=== PATIENT | male | born 1965 | race Caucasian/White ===

== ENCOUNTER 2024-10-05 21:19 | Inpatient (IN) | payer OTHER, SELFPAY ==
[2024-10-05 18:23] VITALS: BP 173/95; BMI 31.4
[2024-10-05 18:39] LABS: % Basophils 0.4 % (0-2); % Eosinophils 0.6 % (0-6); % Immature Granulocytes 0.5 % (0-0.5); % Lymphocytes 14.2 % (20.5-51.1); % Monocytes 13.1 % (1.7-9.3); % Neutrophils 71.2 % (42.2-75.2); Absolute Eosinophils 0.1 10^3/uL (0-0.7); Absolute Immature Granulocytes 0.1 10^3/uL (0-0.05); Absolute Lymphocytes 1.4 10^3/uL (1.2-3.4); Absolute Monocytes 1.3 10^3/uL (0.1-0.6); Absolute Neutrophils 6.8 10^3/uL (1.4-6.5); Hematocrit 39.6 % (39.0-52.0); Hemoglobin 14.4 g/dL (13.0-18.0); Mean Corp Hgb Conc. 36.4 g/dL (33.0-37.0); Mean Platelet Volume 8.3 fL (7.4-10.4); Nucleated Red Blood Cells % 0 % (-); Platelet Count 211 10^3/uL (130-400); Red Cell Dist. Width 12.2 % (11.5-14.5); White Blood Cell Count 9.6 10^3/uL (4.8-10.8)
[2024-10-05 18:59] LABS: ALT (SGPT) 93 U/L (0-50); AST (SGOT) 71 U/L (17-59); Albumin 5.1 g/dl (3.5-5.0); Alkaline Phosphatase 68 U/L (38-126); Blood Urea Nitrogen 17 mg/dl (9-20); Carbon Dioxide 21 mmol/L (22-30); Chloride 86 mmol/L (98-107); Estimated Creatinine Clearance 64 ml/min; Glucose 94 mg/dl (70-99); Potassium 4.4 mmol/L (3.5-5.1); Sodium 126 mmol/L (135-145); Total Bilirubin 1.7 mg/dl (0.2-1.3); Total Protein 7.9 g/dl (6.3-8.2); eGFR 52.97
[2024-10-05 19:00] VITALS: BP 171/92
[2024-10-05 19:06] LABS: Troponin I 0.064 ng/ml
--- NOTE | 2024-10-05 19:30 | ED.GENMED ---
History of Present Illness
<Yudi King NP - Last Filed: 10/06/24 22:00>
General
Chief Complaint: Fall
Source: patient
Exam Limitations: none
Time Seen by Provider: 10/05/24 18:52
Nursing documentation reviewed up to this point in time: agreed with
History of Present Illness
History of Present Illness:
Patient to ED s/p syncopal event at home. He states he got up from a chair this AM, felt dizzy, and then passed out. He reports feeling well after. Tonight he had a repeat episode. Got up from chair, felt dizzy, passed out. Family called 911.
He denies any cp/pressure, SOB, n/v/diaphoresis with either episode. No prior history of same.
Past History
<Yudi King NP - Last Filed: 10/06/24 22:00>
Past History
ED Past Medical History: HTN and Psychiatric
ED Past Surgical History: Other (Hernia repair)
Social History
Tobacco: Non-smoker
Alcohol: Occasional (2-3 beers QOD)
Drug: None
Living: with family
Review of Systems
<Yudi King NP - Last Filed: 10/06/24 22:00>
Review of Systems
Allergies reviewed?: Yes
All Other Systems: ROS reviewed and negative except as documented in HPI and ROS
Constitutional: Reports fatigue
EENT: Reports no symptoms
Respiratory: Reports no symptoms
Cardiac: Reports syncope (2 episodes today.)
ABD/GI: Reports no symptoms
: Reports no symptoms
Musculoskeletal: Reports no symptoms
Skin: Reports no symptoms
Neurological: Reports no symptoms
Psychiatric: Reports no symptoms
Phy Exam
<Yudi King NP - Last Filed: 10/06/24 22:00>
General Physical Exam
General Presentation: well appearing and no apparent distress
General age: appears stated age
General Skin: warm and dry
General Habitus: normal
General Mental: alert
Cardiovascular Exam
Cardiovascular Exam: regular rate/rhythm and no edema
Pulmonary Exam
Pulmonary Exam: lungs clear and no respiratory distress
Gastrointestinal Exam
Gastrointestinal Exam: normal bowel sounds, non tender, soft, no organomegaly and non distended
Musculoskeletal Exam
Musculoskeletal Exam: full ROM and neuro vasc intact
Skin Exam
Skin Exam: normal color, warm/dry and no rash
Psychiatric Exam
Psychiatric Exam: normal mood/affect
Course
<Yudi King WELL DRILLER - Last Filed: 10/06/24 22:00>
Orders/Labs/Results
Orders:
Orders
10/05/24 Breakfast
Sodium, 2 Gram
At Your Request: Full Participation
Fluid Restriction: 1000 mL/day (33 oz)
10/05/24 18:26
Electrocardiogram (*1) Urgent
Reason for Study: Vertigo / Dizzy
EKG- Treatment ONCE
10/05/24 18:27
Complete Blood Count/With Diff Urgent
Comprehensive Metabolic Panel Urgent
Serum Osmolality Urgent
Comment: ADD ON
Troponin I Urgent
10/05/24 19:42
CARDIOLOGY CONSULT Urgent
Consulting Provider: Adam Pompa
Was physician already notified: Yes
10/05/24 19:43
0.9% Sodium Chloride 1000 ml [Nss] 1,000 ml IV BOLUS
10/05/24 20:45
Add On- LAB Urgent
Tests Added?: serum osmo
10/05/24 20:46
Orthostatic Vital Signs As Directed
Orthostatic VS Frequency: Now
10/05/24 21:02
Admit/Transfer Patient As Directed
Co-Sign Provider:
Level of Care: Inpatient admission
Assign to:: Telemetry
Physician / Group: Htay
Diagnosis: Hyponatremia, Syncope
Reason for Telemetry: Syncope
Date to Stop Telemetry: 10/07/24
Time to Stop Telemetry: 11:00
Reason for Hospitalization: IVFs
Expected length of stay greater than two midnights?: Yes
ELOS- Estimated Length of Stay in days: 3
I certify the patient meets the requirements for IP care: Yes
PRN Pain Medication Management As Directed
May give lesser potent ordered pain med per pt: Yes
preference::
Protocol:: Medication orders for pain may be administered in a
manner that supports deferring to patient preference
when the pt is:
- Requesting an ordered lesser potent pain medication.
Least to most potent pain medications are defined
as: acetaminophen < NSAID < tramadol < opioids
(morphine, oxycodone, hydromorphone).
- Requesting a lesser dose of the same medication IF
ORDERED.
- Requesting a less intrusive route of administration
if both routes are prescribed by the provider (PO <
IV).
10/05/24 21:04
Amlodipine [Norvasc] 5 mg PO NOW STA
10/05/24 21:05
Code Status As Directed
Resuscitation Status: Full Code
10/05/24 22:37
Acetaminophen [Tylenol] 650 mg PO Q4HPRN PRN
10/05/24 22:37
Activity As Directed
Activity Level: Out of Bed- Chair
Obtain Records As Directed
Dates of Information to be Released: 1-2 Months Ago
Type of Information Requested: Lab Results
Obtain Records from: Dr. Bernardo Green
Orthostatic Vital Signs As Directed
Orthostatic VS Frequency: Daily
Vital Signs As Directed
Frequency: Per unit guidelines
Weight As Directed
Frequency: Daily
DX Deep Vein Thrombosis Video Routine
10/05/24 23:50
Urine Osmolality Random [Osmolality, Random Urine] Urgent
Date Specimen was Collected: 10/05/24
Time Specimen was Collected: 21:19
Urine Sodium Urgent
Date Specimen was Collected: 10/05/24
Time Specimen was Collected: 21:19
10/06/24 00:00
Heparin 5,000 units SC Q8
10/06/24 00:18
Troponin I Q6H
10/06/24 06:11
Complete Blood Count/No Diff IN AM
Comprehensive Metabolic Panel IN AM
GGT [GGTP] IN AM
TSH Reflex To Free T4 IN AM
Troponin I Q6H
10/06/24 08:00
Amlodipine [Norvasc] 5 mg PO DAILY
Escitalopram Oxalate [Lexapro] 5 mg PO DAILY
10/07/24 11:00
DC Protocol for Telemetry ONCE
Abnormal Lab Results
10/05/24
18:27
RBC 4.50 L 10^6/uL
(4.70-6.10)
MCH 32.0 H pg
(27.0-31.0)
Abs Immat Gran (auto) 0.1 H 10^3/uL
(0-0.05)
Absolute Neuts (auto) 6.8 H 10^3/uL
(1.4-6.5)
Absolute Monos (auto) 1.3 H 10^3/uL
(0.1-0.6)
Lymphocytes % 14.2 L %
(20.5-51.1)
Monocytes % 13.1 H %
(1.7-9.3)
Sodium 126 L mmol/L
(135-145)
Chloride 86 L mmol/L
(98-107)
Carbon Dioxide 21 L mmol/L
(22-30)
Creatinine 1.5 H mg/dL
(0.7-1.3)
Total Bilirubin 1.7 H mg/dl
(0.2-1.3)
AST 71 H U/L
(17-59)
ALT 93 H U/L
(0-50)
Troponin I 0.064 H* ng/ml
Albumin 5.1 H g/dl
(3.5-5.0)
10/05/24 18:27
10/05/24 18:27
Vital Signs
Initial and Last Documented VS:
Initial Vital Signs
Temp Pulse Resp BP Pulse Ox
98.2 F 95 16 173/95 97
10/05/24 18:23 10/05/24 18:23 10/05/24 18:23 10/05/24 18:23 10/05/24 18:23
Last Documented Vital Signs
Temp Pulse Resp BP Pulse Ox
97.9 F 85 16 123/68 100
10/06/24 19:05 10/06/24 19:05 10/06/24 19:05 10/06/24 19:05 10/06/24 19:05
<Jack Carson, DO - Last Filed: 10/05/24 19:41>
Orders/Labs/Results
Orders:
Orders
10/05/24 Breakfast
Sodium, 2 Gram
At Your Request: Full Participation
Fluid Restriction: 1000 mL/day (33 oz)
10/05/24 18:26
Electrocardiogram (*1) Urgent
Reason for Study: Vertigo / Dizzy
EKG- Treatment ONCE
10/05/24 18:27
Complete Blood Count/With Diff Urgent
Comprehensive Metabolic Panel Urgent
Serum Osmolality Urgent
Comment: ADD ON
Troponin I Urgent
10/05/24 19:42
CARDIOLOGY CONSULT Urgent
Consulting Provider: Adam Pompa
Was physician already notified: Yes
10/05/24 19:43
0.9% Sodium Chloride 1000 ml [Nss] 1,000 ml IV BOLUS
10/05/24 20:45
Add On- LAB Urgent
Tests Added?: serum osmo
10/05/24 20:46
Orthostatic Vital Signs As Directed
Orthostatic VS Frequency: Now
10/05/24 21:02
Admit/Transfer Patient As Directed
Co-Sign Provider:
Level of Care: Inpatient admission
Assign to:: Telemetry
Physician / Group: Htay
Diagnosis: Hyponatremia, Syncope
Reason for Telemetry: Syncope
Date to Stop Telemetry: 10/07/24
Time to Stop Telemetry: 11:00
Reason for Hospitalization: IVFs
Expected length of stay greater than two midnights?: Yes
ELOS- Estimated Length of Stay in days: 3
I certify the patient meets the requirements for IP care: Yes
PRN Pain Medication Management As Directed
May give lesser potent ordered pain med per pt: Yes
preference::
Protocol:: Medication orders for pain may be administered in a
manner that supports deferring to patient preference
when the pt is:
- Requesting an ordered lesser potent pain medication.
Least to most potent pain medications are defined
as: acetaminophen < NSAID < tramadol < opioids
(morphine, oxycodone, hydromorphone).
- Requesting a lesser dose of the same medication IF
ORDERED.
- Requesting a less intrusive route of administration
if both routes are prescribed by the provider (PO <
IV).
10/05/24 21:04
Amlodipine [Norvasc] 5 mg PO NOW STA
10/05/24 21:05
Code Status As Directed
Resuscitation Status: Full Code
10/05/24 22:37
Acetaminophen [Tylenol] 650 mg PO Q4HPRN PRN
10/05/24 22:37
Activity As Directed
Activity Level: Out of Bed- Chair
Obtain Records As Directed
Dates of Information to be Released: 1-2 Months Ago
Type of Information Requested: Lab Results
Obtain Records from: Dr. Bernardo Green
Orthostatic Vital Signs As Directed
Orthostatic VS Frequency: Daily
Vital Signs As Directed
Frequency: Per unit guidelines
Weight As Directed
Frequency: Daily
DX Deep Vein Thrombosis Video Routine
10/05/24 23:50
Urine Osmolality Random [Osmolality, Random Urine] Urgent
Date Specimen was Collected: 10/05/24
Time Specimen was Collected: 21:19
Urine Sodium Urgent
Date Specimen was Collected: 10/05/24
Time Specimen was Collected: 21:19
10/06/24 00:00
Heparin 5,000 units SC Q8
10/06/24 00:18
Troponin I Q6H
10/06/24 06:11
Complete Blood Count/No Diff IN AM
Comprehensive Metabolic Panel IN AM
GGT [GGTP] IN AM
TSH Reflex To Free T4 IN AM
Troponin I Q6H
10/06/24 08:00
Amlodipine [Norvasc] 5 mg PO DAILY
Escitalopram Oxalate [Lexapro] 5 mg PO DAILY
10/07/24 11:00
DC Protocol for Telemetry ONCE
Abnormal Lab Results
10/05/24
18:27
RBC 4.50 L 10^6/uL
(4.70-6.10)
MCH 32.0 H pg
(27.0-31.0)
Abs Immat Gran (auto) 0.1 H 10^3/uL
(0-0.05)
Absolute Neuts (auto) 6.8 H 10^3/uL
(1.4-6.5)
Absolute Monos (auto) 1.3 H 10^3/uL
(0.1-0.6)
Lymphocytes % 14.2 L %
(20.5-51.1)
Monocytes % 13.1 H %
(1.7-9.3)
Sodium 126 L mmol/L
(135-145)
Chloride 86 L mmol/L
(98-107)
Carbon Dioxide 21 L mmol/L
(22-30)
Creatinine 1.5 H mg/dL
(0.7-1.3)
Total Bilirubin 1.7 H mg/dl
(0.2-1.3)
AST 71 H U/L
(17-59)
ALT 93 H U/L
(0-50)
Troponin I 0.064 H* ng/ml
Albumin 5.1 H g/dl
(3.5-5.0)
10/05/24 18:27
10/05/24 18:27
Vital Signs
Initial and Last Documented VS:
Initial Vital Signs
Temp Pulse Resp BP Pulse Ox
98.2 F 95 16 173/95 97
10/05/24 18:23 10/05/24 18:23 10/05/24 18:23 10/05/24 18:23 10/05/24 18:23
Last Documented Vital Signs
Temp Pulse Resp BP Pulse Ox
97.9 F 85 16 123/68 100
10/06/24 19:05 10/06/24 19:05 10/06/24 19:05 10/06/24 19:05 10/06/24 19:05
<Yudi King NP - Last Filed: 10/06/24 22:00>
*Critical Care Note
Total Time (30-74mins, 75-104mins- exclusive of procedures): Not Applicable
<Yudi King NP - Last Filed: 10/06/24 22:00>
Update Note
Update Note:
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 Reported standing and then feeling dizzy and passing out. Denies any cp/pressure, SOB, n/v/ diaphoresis. currently asymptomatic. Labs reviewed. Initial Troponin
0.064.Case discussed with Dr. Carson who also evaluated this patient. Will admit to hospitalist service. Na 126, creat 1.5. WIll rehydrate. Dr. Pompa notified of admission and will consult.
ED Attending Note
<Yudi King NP - Last Filed: 10/06/24 22:00>
-
Portions of this chart may have been created with voice recognition software.� Occasional wrong word or��sound alike� substitutions may have occurred due to the inherent limitations of voice recognition software.
<Jack Carson DO - Last Filed: 10/05/24 19:41>
ED Attending Note
Patient seen and examined by attending physician: Yes
I performed the substantive portion of visit, reviewed & personally made and approve the management plan that is documented in note by myself or SULEMAN.: Yes
ED Attending Note:
I evaluated the patient at bedside. Patient currently has no symptoms. He did have 2 episodes of passing out shortly after he stood up each time. Sodium is low and creatinine is high. He was given IV fluids. Of note patient's troponin is
slightly elevated and his EKG shows some questionable ST abnormality. Regardless, he has never had any chest pain and remains chest pain-free currently.
Discharge Plan
Departure
Patient Disposition: Admit
Date of Disposition: 10/05/24
Time of Disposition: 19:41
Presentation/result/management discussed w/ accepting MD/DO: Hospitalist
Patient with high blood pressure during this ER visit?: Yes
Condition: Fair
Discharge Problem:
Syncope
Interventions
Interventions:
*Risk Screen - Suicide Last Done: 10/05/24 18:23
*General Assessment Last Done: 10/05/24 18:23
*Neglect/Abuse Screening Last Done: 10/05/24 18:23
*ED- Fall Risk Assessment Last Done: 10/05/24 18:23
*ED COVID-19 Vaccine History Last Done: 10/05/24 18:23
*Nursing Disposition Last Done: 10/06/24 08:00
ED-Musculoskeletal Assessment Last Done: 10/05/24 19:12
ED- Neurological Assessment Last Done: 10/05/24 19:12
ED-Skin Assessment Last Done: 10/05/24 19:12
Discharge Date and Time
Discharge Date/Time: 10/06/24 08:00
[2024-10-05 20:00] VITALS: BP 163/90
[2024-10-05] MEDS: NSS 1000 IV (20:11)
[2024-10-05 21:00] VITALS: BP 180/90
--- NOTE | 2024-10-05 21:08 | HPS.HSE ---
Family Physician
-
Family Physician: Bernardo Green
Chief Complaint
-
Syncope
History of Present Illness
Patient is a 59 y/o male past medical history of hypertension and depression who presents following two syncopal episodes today. Patient reports prior to both episodes he stood up from a chair, got dizzy and passed out. Patient denies any prior
episodes of syncope. He denies any chest pains or palpitations. He reports poor appetite with poor oral intake. He describes only drinking about 3-4 glasses of water a day. He reports his PCP started him on valsartan about a month ago and he has
not really well since that time.
Medical History
Past Medical History
Past Medical History: Reports Other
Additional Past Medical History:
Essential Hypertension
Depression
Past Surgical History: Reports Other
Additional Past Surgical History:
Hernia Repair
Social History
Tobacco: Non-smoker
Alcohol: Occasional (3-4 beers every other day)
Family History
Family History: Not pertinent
Allergies / Home Medications
Allergies reflects when Allergies were last updated in [facility].
Home Medications with original date entered in [facility]
Allergy/Medication List:
Allergies
Allergy/AdvReac Type Severity Reaction Status Date / Time
No Known Allergies Allergy Unverified 10/05/24 19:52
Home Medications
escitalopram oxalate 5 mg tablet 5 mg PO DAILY 10/05/24
sildenafil 100 mg tablet 100 mg PO DAILYPRN PRN intercourse 10/05/24
valsartan 160 mg tablet 320 mg PO DAILY 10/05/24
Review of Systems
-
A 12 point ROS was completed and negative except as noted: Yes
Constitutional: Denies Fever or Chills
Respiratory: Denies Cough or Trouble Breathing
Cardiac: Denies Chest Pain or Palpitations
Physical Exam
Vital Signs
Vital Signs
Temp Pulse Resp BP Pulse Ox
98.2 F 87 16 163/90 97
10/05/24 18:23 10/05/24 20:45 10/05/24 20:45 10/05/24 20:00 10/05/24 20:45
Physical Exam
General: Comfortable and Conversant
HEENT: Anicteric and Other (Tongue appears slightly dry)
Respiratory: Clear and Non Labored Respirations
Cardiac: S1/S2 and Regular Rhythm; No Murmur
GI: Soft and Non Tender
Rectal: Deferred by Provider
Musculoskeletal: No Clubbing, No Cyanosis and No Edema
Skin: Warm and Dry
Neuro: Awake, Alert, Oriented and Nonfocal/grossly intact
Psych: Calm
Laboratory Results
-
10/05/24 18:27
10/05/24 18:27
Laboratory Results
Total Bilirubin 1.7 mg/dl (0.2-1.3) H 10/05/24 18:27
AST 71 U/L (17-59) H 10/05/24 18:27
ALT 93 U/L (0-50) H 10/05/24 18:27
Alkaline Phosphatase 68 U/L (38-126) 10/05/24 18:27
Troponin I 0.064 ng/ml H* 10/05/24 18:27
Data Reviewed
-
Lab Data: Labs Reviewed by me
Old Records: Requested (Attempt to obtain blood work from PCP)
Impression/Plan
-
Acute Kidney Injury, likely multi-factorial from ARB and poor oral intake
-Continue IVFs overnight
-Hold valsartan
-Recheck labs in AM
Hyponatremia, likely hypovolemic
-Continue IVFs overnight
-Check urine sodium, urine osmo and serum osmo
Syncope suspect related to volume deletion
-Check orthostatic VS
-Check echocardiogram
Elevated Troponin, likely non-ischemic
-Continue to trend troponin
Elevated LFTs possibly related to hypoperfusion
-Check Abd US
-Continue to trend
Depression
-Continue escitalopram
DVT proph: SC Heparin
Code Status: Full Code
[2024-10-05 21:15] LABS: Osmolality Serum 287 mOsm/kg (275-300)
--- NOTE | 2024-10-05 21:15 | W.PN.UPDATE ---
Update Note
Progress Note Update
This note serves as an addendum to the H&P by national recruiter SULEMAN Tracy DIETZ
HPI
59M non smoker, occasional beer drinker , HX HTN [facility] EMS and seen at ER for 2 syncopal episode at home:
- recall felt dizzy, when he got up from a chair this AM and then passed out.
- felt well after passing out
- Tonight he had a repeat episode after getting up from chair, felt dizzy, passed out.
- Family called 911
- No prior HX Syncope
Denied CP
Unremarkable EKG in NSR and no acute ischemia
TPNI 0.064
Cr 1.5
ROS:
He denies any cp/pressure, SOB, n/v/diaphoresis with either episode
VS
10/05/24
18:23
Temp 98.2 F
Pulse 95
Resp Rate 16
Blood pressure 173/95
SaO2 97
Oxygen Mode of Delivery Room air
PE
Gen: Not toxic
HEENT: anicteric
Neck: supple , no bruit
Lungs: CTA
Cor: RRR S1 S2 . No murmur
Abdomen: soft benign exam
MAINTENANCE OF WAY SUPERVISOR: AAO3 , NFND
MS: no edema
Psych: normal mood and affect
Lab
10/05/24
18:27
WBC 9.6
Hgb 14.4
Plt Count 211
Sodium 126 L
Chloride 86 L
Carbon Dioxide 21 L
Creatinine 1.5 H
eGFR 52.97
Serum Osmolality Pending
Total Bilirubin 1.7 H
AST 71 H
ALT 93 H
Troponin I 0.064 H*
EKG
NORMAL SINUS RHYTHM
ABNORMAL QRS-T ANGLE, CONSIDER PRIMARY T WAVE ABNORMALITY
ABNORMAL ECG
NO PREVIOUS ECGS AVAILABLE
ASSESSMENT & PLAN
2 episodes of witnessed syncope preceded by lightheadedness
Hypertensive upon arrival
Not tachy or laura arrhythmic on monitor
Hyponatremia & hypochloremia suspect dehydration
- s/p 1 L NS @ ER and no more after the first litre
- Ortho VSS now and in AM
- TLM monitor
- ECHO in AM
- Trend Na in AM
- check TSH in AM
- Fall precautions
- DCA card consult
POS TPNI - NIMI vs
Unremarkable EKG
- Denied CP
- Trend TPNI
- ECHO Evaluation
- await Card input
JANEY suspect dehydration +/_ Valsartan
Poor appetite , Poor PO intake
- Hold Valsartan
- Trend Cr in and Na in AM
Essential HTN
- start Amlodipine 5 mg daily
- Hold Valsartan
- Observe BP
Abn LFTS
Reports occasional Beer 2-3 cans every other day
- Trend LFTs s/p IVF
- GGT
DVT Px: SQH
Full code
IP TLM
[2024-10-05] MEDS: NORVASC 5 MG PO (21:31)
[2024-10-05 22:00] VITALS: BP 167/89
[2024-10-05 23:00] VITALS: BP 153/87
[2024-10-06] VITALS (11 sets, daily range): BP systolic 115–171; BP diastolic 68–103; PULSE 96–113
[2024-10-06 00:12] LABS: Osmolality Urine 126 mOsm/kg (300-900)
[2024-10-06 01:03] LABS: Troponin I 0.045 ng/ml
[2024-10-06] MEDS: HEPARIN 5000 UNITS SC ×4 (01:24→23:05)
[2024-10-06 01:27] LABS: Urine Sodium 17 mmol/L (30-90)
[2024-10-06] MEDS: TYLENOL 650 MG PO ×3 (01:28→12:14)
[2024-10-06 06:20] LABS: Hematocrit 38.1 % (39.0-52.0); Hemoglobin 13.7 g/dL (13.0-18.0); Mean Corpuscular Hgb 32.2 pg (27.0-31.0); Mean Corpuscular Volume 89.4 fL (80.0-94.0); Mean Platelet Volume 8.5 fL (7.4-10.4); Platelet Count 189 10^3/uL (130-400); Red Blood Cell Count 4.26 10^6/uL (4.70-6.10); White Blood Cell Count 8.2 10^3/uL (4.8-10.8)
[2024-10-06 06:45] LABS: Troponin I 0.028 ng/ml
[2024-10-06 06:46] LABS: ALT (SGPT) 82 U/L (0-50); AST (SGOT) 60 U/L (17-59); Alkaline Phosphatase 67 U/L (38-126); Blood Urea Nitrogen 16 mg/dl (9-20); Calcium 9.8 mg/dl (8.4-10.2); Carbon Dioxide 20 mmol/L (22-30); Chloride 94 mmol/L (98-107); Estimated Creatinine Clearance 87 ml/min; Glucose 84 mg/dl (70-99); Potassium 5.7 mmol/L (3.5-5.1); Sodium 127 mmol/L (135-145); Total Bilirubin 2.8 mg/dl (0.2-1.3); Total Protein 7.3 g/dl (6.3-8.2); eGFR > 60.00
[2024-10-06 07:12] LABS: TSH Reflex To Free T4 3.23 uIU/ml (0.47-4.68)
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
--- NOTE | 2024-10-06 08:51 | CM ---
Reviewed the chart notes and spoke with the patient at the bedside. The patient resides with his spouse, son, and daughter in a two story home with one step to enter. The patient reports no DME/VN/SNF in the past. The [facility] CM continues to be available to patient/family and is monitoring medical plan for needs at discharge.
Plan: Discharge to home when medically stable. No additional needs identified at this time.
--- NOTE | 2024-10-06 09:27 | PTCARENOTE ---
patient currently off unit for ultrasound.
[2024-10-06] MEDS: LEXAPRO 5 MG PO (10:40)
[2024-10-06] MEDS: NORVASC 5 MG PO (10:40)
[2024-10-06] MEDS: CALAN EXTENDED RELEASE 180 MG PO (12:14)
[2024-10-06 12:17] LABS: Cortisol, Random 18.3 ug/dl
--- NOTE | 2024-10-06 15:17 | PTCARENOTE ---
Complains of unrelieved knee pain s/p fall. No open wound noted. Dr. Alfonzo austin.
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
--- NOTE | 2024-10-06 16:14 | W.CON.NEPH ---
Consultation
-
Date/Time Consultation Requested: October 06, 2024 at 4 PM
Date/Time Consultation Performed: October 06, 2024 at 4:15 PM
Requesting Provider: Dr. Mejía
Performing Provider: Dr. Last
Reason for Consultation: Hyponatremia
Medical History
-
Chief Complaint: Syncope and hyponatremia
History of Present Illness:
59 y/o male past medical history of hypertension and depression who presents following two syncopal episodes yesterday. Patient reports prior to both episodes he stood up from a chair, got dizzy and passed out. Patient denies any prior episodes
of syncope. He denies any chest pains or palpitations. He reports poor appetite with poor oral intake with weight loss. He describes only drinking about 3-4 glasses of water a day and 4-5 beers per day. CP started him on valsartan about a month
ago.
He is found to have a sodium of 126 therefore renal consult
He has been taking Motrin 800 mg daily for 3 to 4 weeks
Past Medical History
hypertension and depression alcohol use
Social History
Tobacco: Non-Smoker
Alcohol: Daily
Family History
Family History: Not Pertinent
Allergies / Home Medications
Allergy/AdvReac Type Severity Reaction Status Date / Time
No Known Allergies Allergy Unverified 10/05/24 19:52
�Medication �Instructions �Recorded �Confirmed �Type
escitalopram oxalate 5 mg tablet 5 mg PO DAILY 10/05/24 10/05/24 History
sildenafil 100 mg tablet 100 mg PO DAILYPRN PRN intercourse 10/05/24 10/05/24 History
valsartan 160 mg tablet 320 mg PO DAILY 10/05/24 10/05/24 History
Review of Systems
-
Weakness no chest pain or shortness of breath
All other systems: Negative unless noted
Physical Exam
Vital Signs
Vital Signs
Temp Pulse Resp BP Pulse Ox
98.3 F 86 20 120/78 96
10/06/24 15:27 10/06/24 15:27 10/06/24 15:27 10/06/24 15:27 10/06/24 15:27
Lab Results
WBC 8.2 10^3/uL (4.8-10.8) 10/06/24 06:11
RBC 4.26 10^6/uL (4.70-6.10) L 10/06/24 06:11
Hgb 13.7 g/dL (13.0-18.0) 10/06/24 06:11
Hct 38.1 % (39.0-52.0) L 10/06/24 06:11
Plt Count 189 10^3/uL (130-400) 10/06/24 06:11
eGFR > 60.00 10/06/24 06:11
Albumin 5.0 g/dl (3.5-5.0) 10/06/24 06:11
Physical Exam
General no acute distress
HEENT no cephalic atraumatic extraocular muscle intact no scleral icterus no JVD neck supple
lungs clear to auscultation bilateral
heart regular S1-S2 positive
abdomen soft nontender positive bowel sounds
extremities no edema pulses present bilateral
Neurologically nonfocal alert and oriented x 3
Skin no lesions no abrasions no petechiae
Psych normal affect no bizarre behavior
Data Reviewed
-
Ultrasound: Image Personally Visualized and interpreted
Medical Tests (Nuc Med, Echo etc): Image Personally Visualized and interpreted
Labs: Labs Reviewed by me, Discussed with Patient and Discussed with Family
Assessment/Plan
-
59 y/o male past medical history of hypertension and depression who presents following two syncopal episodes yesterday. Patient reports prior to both episodes he stood up from a chair, got dizzy and passed out. Patient denies any prior episodes of
syncope. He denies any chest pains or palpitations. He reports poor appetite with poor oral intake with weight loss. He describes only drinking about 3-4 glasses of water a day and 4-5 beers per day. CP started him on valsartan about a month ago.
He is found to have a sodium of 126 therefore renal consult
He has been taking Motrin 800 mg daily for 3 to 4 weeks
Impression.
Hyponatremia.
Hypertension.
Syncope.
Alcohol use.
Plan.
urine sodium 17 urine osmolality 126.
He has been drinking at 4 to 5 glasses of water since he has been here
Alcohol use 4-5 beers daily with about 4 glasses of water daily.
In conjunction with decreased p.o. intake decreased solute intake.
Hold IV fluid
Fluid restrict 32 ounces
Recheck labs in the morning
Cortisol and TSH within normal limits
[2024-10-06] MEDS: ULTRAM 50 MG PO (16:50)
[2024-10-06 17:11] LABS: Blood Urea Nitrogen 21 mg/dl (9-20); Calcium 9.8 mg/dl (8.4-10.2); Carbon Dioxide 22 mmol/L (22-30); Chloride 93 mmol/L (98-107); Estimated Creatinine Clearance 80 ml/min; Glucose 107 mg/dl (70-99); Potassium 4.9 mmol/L (3.5-5.1); Sodium 128 mmol/L (135-145); eGFR > 60.00
[2024-10-06] MEDS: THIAMINE INJECTION 200 MG IV (19:39)
[2024-10-06 20:03] LABS: GGTP 84 U/L (15-73)
[2024-10-06] MEDS: TORADOL 15 MG IV (20:28)
--- NOTE | 2024-10-06 20:30 | PTCARENOTE ---
Pt complaining of left knee pain unrelieved by previous pain medications. [facility] notified, Order obtained, Toradol IV given as ordered for left knee pain 03/03. Left knee red, ecchymotic, and edematous. Ice pack applied. No other complaints
offered at this time. MSAS 0. HR in the 70's in NSR on the monitor. Vital signs stable. Will continue to monitor.
[2024-10-07] VITALS (8 sets, daily range): BP systolic 112–125; BP diastolic 66–80; PULSE 96–100; BMI 29.6
--- NOTE | 2024-10-07 | PTCARENOTE ---
Pt reports left knee pain much improved at this time, 08/31. New ice pack applied. No other issues to report at this time. Will continue to monitor.
[2024-10-07] MEDS: ULTRAM 50 MG PO ×2 (06:12→16:22)
[2024-10-07 07:56] LABS: Blood Urea Nitrogen 29 mg/dl (9-20); Calcium 9.8 mg/dl (8.4-10.2); Carbon Dioxide 22 mmol/L (22-30); Chloride 95 mmol/L (98-107); Estimated Creatinine Clearance 60 ml/min; Glucose 108 mg/dl (70-99); Potassium 5.2 mmol/L (3.5-5.1); Sodium 129 mmol/L (135-145); eGFR 57.54
[2024-10-07] MEDS: CALAN EXTENDED RELEASE 180 MG PO (08:34)
[2024-10-07] MEDS: LEXAPRO 5 MG PO (08:36)
[2024-10-07] MEDS: HEPARIN 5000 UNITS SC ×2 (08:37→16:21)
[2024-10-07] MEDS: THIAMINE INJECTION 200 MG IV ×2 (08:37→20:16)
[2024-10-07] MEDS: FOLVITE 1 MG PO (08:37)
[2024-10-07] MEDS: MORPHINE SULFATE 2 MG IV (09:08)
[2024-10-07] MEDS: TYLENOL 650 MG PO (09:08)
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
--- NOTE | 2024-10-07 11:27 | W.PN.UPDATE ---
Update Note
Progress Note Update
Patient seen and examined by orthopedic surgery. Full H&P pending.
59-year-old male presenting to ED on Saturday after experiencing 2 syncopal episodes. He reports that he fell directly onto his left knee. He reports increased pain to the left knee with weightbearing activities beginning yesterday. Orthopedic
surgery was consulted for recommendations regarding his left knee pain
X-rays of the left knee were obtained and reviewed, and revealed no obvious acute fracture or dislocation. Mild tricompartmental osteoarthritis with a moderate suprapatellar joint effusion.
Case discussed with Dr. Gordon. Will proceed with aspiration of the left knee joint. If positive for hemarthrosis, will obtain MRI to rule out internal derangement/occult fracture. If negative for hemarthrosis, given arthrosis noted on plain
radiographs, we will proceed with corticosteroid injection.
--- NOTE | 2024-10-07 12:39 | W.PN.NEPH.PH ---
Today's Communication / Plan
-
Fluid restrict okay for discharge from renal standpoint BMP in 1 week postdischarge with primary care physician no need to follow-up with nephrology
Assessment/Plan
-
59 y/o male past medical history of hypertension and depression who presents following two syncopal episodes yesterday. Patient reports prior to both episodes he stood up from a chair, got dizzy and passed out. Patient denies any prior episodes of
syncope. He denies any chest pains or palpitations. He reports poor appetite with poor oral intake with weight loss. He describes only drinking about 3-4 glasses of water a day and 4-5 beers per day. CP started him on valsartan about a month ago.
He is found to have a sodium of 126 therefore renal consult
He has been taking Motrin 800 mg daily for 3 to 4 weeks
Impression.
Hyponatremia.
Hypertension.
Syncope.
Alcohol use.
Plan.
urine sodium 17 urine osmolality 126.
He has been drinking at 4 to 5 glasses of water since he has been here
Alcohol use 4-5 beers daily with about 4 glasses of water daily.
In conjunction with decreased p.o. intake decreased solute intake.
Hold IV fluid
Fluid restrict 32 ounces
Sodium improved to 129
Cortisol and TSH within normal limits
Okay to discharge from a renal standpoint with blood work with his primary in a week.
Educated him with fluid restriction
-
-
Date of Service: October 07, 2024
CC / HPI / ROS
-
No chest pain or shortness of breath complains of left knee swelling
No overnight events
Labs
-
Labs:
WBC 8.2 10^3/uL (4.8-10.8) 10/06/24 06:11
RBC 4.26 10^6/uL (4.70-6.10) L 10/06/24 06:11
Hgb 13.7 g/dL (13.0-18.0) 10/06/24 06:11
Hct 38.1 % (39.0-52.0) L 10/06/24 06:11
Plt Count 189 10^3/uL (130-400) 10/06/24 06:11
Sodium 129 mmol/L (135-145) L 10/07/24 06:52
Potassium 5.2 mmol/L (3.5-5.1) H 10/07/24 06:52
Chloride 95 mmol/L (98-107) L 10/07/24 06:52
Carbon Dioxide 22 mmol/L (22-30) 10/07/24 06:52
BUN 29 mg/dl (9-20) H 10/07/24 06:52
Creatinine 1.4 mg/dL (0.7-1.3) H 10/07/24 06:52
eGFR 57.54 10/07/24 06:52
Glucose 108 mg/dl (70-99) H 10/07/24 06:52
Calcium 9.8 mg/dl (8.4-10.2) 10/07/24 06:52
Albumin 5.0 g/dl (3.5-5.0) 10/06/24 06:11
Physical Exam
-
Vital Signs:
Vital Signs
Temp Pulse Resp BP Pulse Ox
98.6 F 86 18 112/66 96
10/07/24 11:00 10/07/24 11:00 10/07/24 11:00 10/07/24 11:00 10/07/24 11:00
Respiratory:: Bilateral: CTA
Lung Excursion:: Normal
Abdomen:: Soft
Bowel Sounds:: Normal
Esposito Catheter: No
Other Findings::
Left knee swelling
--- NOTE | 2024-10-07 13:14 | CM ---
Patient seen at bedside. Patient states that he is for a drain to his knee and he plans to go home with no further needs. CM will continue to follow for discharge planning needs.
Plan;home with no needs
--- NOTE | 2024-10-07 14:22 | W.PN.UPDATE ---
Update Note
Progress Note Update
Patient underwent left knee aspiration yielding approximately 30 cc of cloudy yellow synovial fluid. This was sent to the lab for cell count, Gram stain, culture and sensitivity, crystal analysis, and Lyme's. No corticosteroid injection was
administered due to clarity of joint fluid.
Full H&P pending. Discussed with primary team Dr. Mejía.
Orthopedic surgery will continue to follow along.
--- NOTE | 2024-10-07 14:30 | CON.ORTHO ---
Documented by User: J Carlos Marino PA-C 10/07/24 19:53
Consultation
-
Date/Time Consultation Requested: 10/07/2024 @ 8:59 AM
Date/Time Consultation Performed: 10/07/2024 @ 11:15 AM
Requesting Provider: Dr. Alfonzo MD
Performing Provider: J Carlos Marino PA-C for Dr. Mauricio Gordon MD
Reason for Consultation: Left Knee Pain & Effusion
Consultation - Orthopedics
History
Orthopedic Surgery Note
CC: Left Knee Pain and Swelling
HPI: The patient is a 59-year-old male with a past medical history significant for Hypertension and Depression who presented to [facility] ED on 10/05/2024 after sustaining two syncopal episodes at home. He reports that he
unfortunately fell and hit his left knee after the second syncopal event. He denies any immediate onset of pain at the time. He reports onset of left knee pain beginning on 10/06/2024. X-rays were obtained, and were negative for acute
fracture or dislocation. X-rays revealed mild tricompartmental osteoarthritis with a moderate suprapatellar joint effusion. The patient denies any history of Gout or Lyme's disease. He denies any constitutional symptoms. He reports that his knee
pain has not worsened since onset yesterday. He denies any paresthesias. He reports always having some swelling about his left knee, however was never was really associated with pain. He endorses increased left knee pain with weightbearing
activities, localized to the medial and lateral aspects. He denies any hip or groin pain. Orthopedic surgery was consulted for further management of his left knee knee pain with consideration for arthrocentesis.
PMH/PSH: Hypertension and Depression.
Medications: Reviewed.
Family History: Family history was reviewed. Noncontributory.
Social history:
Tobacco: Non-Smoker
Alcohol: Occasional (3-4 beers every other day)
Drug: None
Personal:
Living: With Family
Exam
General appearance: Pleasant. No acute distress.
Head: Normocephalic/atraumatic
Nose: No lesions or discharge.
Skin: No obvious rashes or open wounds
Lungs: No audible wheezing, no cough or sputum production
Musculoskeletal:
LLE:
Physical examination of the left lower extremity, with attention to the left knee, does not reveal any obvious deformity, erythema, significant warmth, or ecchymosis. Moderate intra-articular effusion. Extensor mechanism is intact. ROM just shy
of terminal extension to approximately 100 degrees of flexion, limited by pain and swelling. Positive medial joint line tenderness. Positive lateral joint line tenderness. No tenderness to palpation overlying the quadriceps tendon, patella or
patellar tendon. Equivocal patellofemoral grind. I do not appreciate any obvious instability the cruciates or collaterals at 0 and 30 degrees. Betty's testing is equivocal. No pain with hip ROM 20 degrees internal rotation and 20 degrees
external rotation. Calf is soft and nontender to palpation. NVI distally.
Imaging:
CR Knee - LEFT 1 or 2 Views was obtained at [facility] on 10/06/2024 and was made available for my review today. Findings: Bones - There is no acute fracture or dislocation. Joints - There is a moderate suprapatellar joint effusion. There
is moderate joint space narrowing of the medial compartment. There is mild joint space narrowing of the lateral compartment. There is mild osteophyte formation of the lateral compartment. There is mild joint space narrowing of the patellofemoral
joint with moderate sclerosis. Periosteal reaction - There is no bony destruction, erosive changes, or periosteal reaction. Soft tissue - There is no abnormal soft tissue calcification. Impression: Moderate suprapatellar joint effusion. Mild
tricompartmental osteoarthritis.
Assessment: 59-year-old male with a past medical history significant for HTN and Depression with left knee pain and effusion. X-rays revealed mild tricompartmental osteoarthritis with a moderate suprapatellar effusion; negative for occult fracture
or dislocation.
Plan: After obtaining verbal consent, and confirming laterality, the patient's LEFT knee was meticulously sterilized with alcohol, and with a 60 cc syringe and 18-gauge needle, approximately 30 cc of cloudy yellow synovial fluid was aspirated. Due
to clarity of joint fluid, this was sent to the lab for cell count, Gram stain, culture and sensitivity, crystal analysis, and Lyme's. Orthopedic surgery will continue to follow aspirate results.
UPDATE:
Left Knee Arthrocentesis -
Fluid WBC: 58,690
PMN: 91.2%
Crystal Analysis: (+) Monosodium Urate Crystals seen.
Gram Stain: WBC's seen. No organisms seen.
Fluid Culture: Pending.
Patient presentation, radiographs, and arthrocentesis results discussed with Dr. Gorodn. Signs and symptoms most consistent with Gout. Discussed treatment recommendations with Dr. Gordon; recommended proceeding with a corticosteroid injection.
This was administered intra-articularly into the LEFT knee with 40 mg of Kenalog and 4 cc of 0.25% Marcaine without complication; the patient tolerated the procedure well. Orthopedic surgery will continue to follow along, however patient would also
likely benefit from gout treatment/management from primary team perspective. All questions were answered.
Allergies / Home Medications
Allergy/AdvReac Type Severity Reaction Status Date / Time
No Known Allergies Allergy Unverified 10/05/24 19:52
�Medication �Instructions �Recorded
escitalopram oxalate 5 mg tablet 5 mg PO DAILY 10/05/24
sildenafil 100 mg tablet 100 mg PO DAILYPRN PRN intercourse 10/05/24
valsartan 160 mg tablet 320 mg PO DAILY 10/05/24
Vital Signs / Lab Results
Temp Pulse Resp BP Pulse Ox
98.6 F 86 18 112/66 95
10/07/24 11:00 10/07/24 11:00 10/07/24 11:00 10/07/24 11:00 10/07/24 13:11
10/06/24 06:11
10/07/24 06:52

Documented by User: Mauricio Gordon MD 10/08/24 06:58
Consultation - Orthopedics
History
Orthopedic Surgery Note
CC: Left Knee Pain and Swelling
Patient seen and evaluated by Mauricio Gordon MD.
HPI: The patient is a 59-year-old male with a past medical history significant for Hypertension and Depression who presented to [facility] ED on 10/05/2024 after sustaining two syncopal episodes at home. He reports that he
unfortunately fell and hit his left knee after the second syncopal event. He denies any immediate onset of pain at the time. He reports onset of left knee pain beginning on 10/06/2024. X-rays were obtained, and were negative for acute
fracture or dislocation. X-rays revealed mild tricompartmental osteoarthritis with a moderate suprapatellar joint effusion. The patient denies any history of Gout or Lyme's disease. He denies any constitutional symptoms. He reports that his knee
pain has not worsened since onset yesterday. He denies any paresthesias. He reports always having some swelling about his left knee, however was never was really associated with pain. He endorses increased left knee pain with weightbearing
activities, localized to the medial and lateral aspects. He denies any hip or groin pain. Orthopedic surgery was consulted for further management of his left knee knee pain with consideration for arthrocentesis.
PMH/PSH: Hypertension and Depression.
Medications: Reviewed.
Family History: Family history was reviewed. Noncontributory.
Social history:
Tobacco: Non-Smoker
Alcohol: Occasional (3-4 beers every other day)
Drug: None
Personal:
Living: With Family
Exam
General appearance: Pleasant. No acute distress.
Head: Normocephalic/atraumatic
Nose: No lesions or discharge.
Skin: No obvious rashes or open wounds
Lungs: No audible wheezing, no cough or sputum production
Musculoskeletal:
LLE:
Physical examination of the left lower extremity, with attention to the left knee, does not reveal any obvious deformity, erythema, significant warmth, or ecchymosis. Moderate intra-articular effusion. Extensor mechanism is intact. ROM just shy
of terminal extension to approximately 100 degrees of flexion, limited by pain and swelling. Positive medial joint line tenderness. Positive lateral joint line tenderness. No tenderness to palpation overlying the quadriceps tendon, patella or
patellar tendon. Equivocal patellofemoral grind. I do not appreciate any obvious instability the cruciates or collaterals at 0 and 30 degrees. Betty's testing is equivocal. No pain with hip ROM 20 degrees internal rotation and 20 degrees
external rotation. Calf is soft and nontender to palpation. NVI distally.
Imaging:
CR Knee - LEFT 1 or 2 Views was obtained at [facility] on 10/06/2024 and was made available for my review today. Findings: Bones - There is no acute fracture or dislocation. Joints - There is a moderate suprapatellar joint effusion. There
is moderate joint space narrowing of the medial compartment. There is mild joint space narrowing of the lateral compartment. There is mild osteophyte formation of the lateral compartment. There is mild joint space narrowing of the patellofemoral
joint with moderate sclerosis. Periosteal reaction - There is no bony destruction, erosive changes, or periosteal reaction. Soft tissue - There is no abnormal soft tissue calcification. Impression: Moderate suprapatellar joint effusion. Mild
tricompartmental osteoarthritis.
Assessment: 59-year-old male with a past medical history significant for HTN and Depression with left knee pain and effusion. X-rays revealed mild tricompartmental osteoarthritis with a moderate suprapatellar effusion; negative for occult fracture
or dislocation.
Plan: After obtaining verbal consent, and confirming laterality, the patient's LEFT knee was meticulously sterilized with alcohol, and with a 60 cc syringe and 18-gauge needle, approximately 30 cc of cloudy yellow synovial fluid was aspirated. Due
to clarity of joint fluid, this was sent to the lab for cell count, Gram stain, culture and sensitivity, crystal analysis, and Lyme's. Orthopedic surgery will continue to follow aspirate results.
UPDATE:
Left Knee Arthrocentesis -
Fluid WBC: 58,690
PMN: 91.2%
Crystal Analysis: (+) Monosodium Urate Crystals seen.
Gram Stain: WBC's seen. No organisms seen.
Fluid Culture: Pending.
Patient presentation, radiographs, and arthrocentesis results discussed with Dr. Gordon. Signs and symptoms most consistent with Gout. Discussed treatment recommendations with Dr. Gordon; recommended proceeding with a corticosteroid injection.
This was administered intra-articularly into the LEFT knee with 40 mg of Kenalog and 4 cc of 0.25% Marcaine without complication; the patient tolerated the procedure well. Orthopedic surgery will continue to follow along, however patient would also
likely benefit from gout treatment/management from primary team perspective. All questions were answered.
[2024-10-07] MEDS: SENSORCAINE-MPF 0.25% VIAL 4 ML INFIL (14:47)
[2024-10-07 14:58] LABS: Body Fluid Mononuclear 8.8 %; Body Fluid Polymorphonuclear 91.2 %; Body Fluid WBC 58690 /CUMM
--- NOTE | 2024-10-07 15:18 | W.PN.UPDATE ---
Update Note
Progress Note Update
Stable cardiovascular status.
Echo reviewed.
Will arrange outpatient follow-up visit for evaluation for outpatient ischemic eval and potential monitor.
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
[2024-10-07 15:33] LABS: Body Fluid Second Tech DW
[2024-10-08] MEDS: HEPARIN 5000 UNITS SC ×2 (00:04→09:06)
[2024-10-08] MEDS: ULTRAM 50 MG PO ×2 (00:26→09:16)
[2024-10-08 03:41] VITALS: BP 126/87
[2024-10-08 06:00] VITALS: BMI 29.5
[2024-10-08 06:41] LABS: Blood Urea Nitrogen 32 mg/dl (9-20); Calcium 10.2 mg/dl (8.4-10.2); Carbon Dioxide 23 mmol/L (22-30); Chloride 97 mmol/L (98-107); Estimated Creatinine Clearance 64 ml/min; Glucose 163 mg/dl (70-99); Potassium 5.5 mmol/L (3.5-5.1); Sodium 132 mmol/L (135-145); eGFR > 60.00
[2024-10-08 07:15] VITALS: BP 143/104; BP 145/88; BP 162/96; PULSE 104; PULSE 82; PULSE 99
--- NOTE | 2024-10-08 07:29 | W.PN.UPDATE ---
Update Note
Progress Note Update
Dr. Gordon had an opportunity to follow-up on Mr. Bauer this morning. After his left knee aspiration and cortisone injection yesterday he feels better. He does have history of gout in his feet so recommendations are to discuss gout management
(allopurinol) with his primary Dr. Green after discharge. Expect him to continue to improve over the next few days with the steroid injection. Orthopedics to sign off for now and he may follow-up as needed for his knee pain.
[2024-10-08] MEDS: CALAN EXTENDED RELEASE 180 MG PO (09:05)
[2024-10-08] MEDS: FOLVITE 1 MG PO (09:05)
[2024-10-08] MEDS: THIAMINE INJECTION 200 MG IV (09:06)
[2024-10-08] MEDS: LEXAPRO 5 MG PO (09:07)
--- NOTE | 2024-10-08 10:38 | W.PN.NEPH.PH ---
Today's Communication / Plan
-
Continue fluid restriction 48 ounces outpatient
Assessment/Plan
-
59 y/o male past medical history of hypertension and depression who presents following two syncopal episodes yesterday. Patient reports prior to both episodes he stood up from a chair, got dizzy and passed out. Patient denies any prior episodes of
syncope. He denies any chest pains or palpitations. He reports poor appetite with poor oral intake with weight loss. He describes only drinking about 3-4 glasses of water a day and 4-5 beers per day. CP started him on valsartan about a month ago.
He is found to have a sodium of 126 therefore renal consult
He has been taking Motrin 800 mg daily for 3 to 4 weeks
Impression.
Hyponatremia.
Hypertension.
Syncope.
Alcohol use.
Plan.
urine sodium 17 urine osmolality 126.
He has been drinking at 4 to 5 glasses of water since he has been here
Alcohol use 4-5 beers daily with about 4 glasses of water daily.
In conjunction with decreased p.o. intake decreased solute intake.
Hold IV fluid
Fluid restrict 32 ounces
Sodium improved to 129�132
Cortisol and TSH within normal limits
Okay to discharge from a renal standpoint with blood work with his primary in a week.
Educated him with fluid restriction
-
-
Date of Service: October 08, 2024
CC / HPI / ROS
-
No chest pain or shortness of breath complains of left knee swelling status post drainage
No overnight events
Labs
-
Labs:
WBC 8.2 10^3/uL (4.8-10.8) 10/06/24 06:11
RBC 4.26 10^6/uL (4.70-6.10) L 10/06/24 06:11
Hgb 13.7 g/dL (13.0-18.0) 10/06/24 06:11
Hct 38.1 % (39.0-52.0) L 10/06/24 06:11
Plt Count 189 10^3/uL (130-400) 10/06/24 06:11
Sodium 132 mmol/L (135-145) L 10/08/24 06:03
Potassium 5.5 mmol/L (3.5-5.1) H 10/08/24 06:03
Chloride 97 mmol/L (98-107) L 10/08/24 06:03
Carbon Dioxide 23 mmol/L (22-30) 10/08/24 06:03
BUN 32 mg/dl (9-20) H 10/08/24 06:03
Creatinine 1.3 mg/dL (0.7-1.3) 10/08/24 06:03
eGFR > 60.00 10/08/24 06:03
Glucose 163 mg/dl (70-99) H 10/08/24 06:03
Calcium 10.2 mg/dl (8.4-10.2) 10/08/24 06:03
Albumin 5.0 g/dl (3.5-5.0) 10/06/24 06:11
Physical Exam
-
Vital Signs:
Vital Signs
Temp Pulse Resp BP Pulse Ox
97.7 F 82 16 145/88 98
10/08/24 07:15 10/08/24 09:05 10/08/24 07:15 10/08/24 09:05 10/08/24 07:15
Respiratory:: Bilateral: CTA
Lung Excursion:: Normal
Abdomen:: Soft
Bowel Sounds:: Normal
Esposito Catheter: No
Other Findings::
Left knee swelling
[2024-10-08 11:12] VITALS: BP 138/80
[2024-10-08 11:53] LABS: Uric Acid 9.6 mg/dl (3.5-8.5)
[2024-10-08 11:55] VITALS: BP 138/80
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
[2024-10-08 15:00] VITALS: BP 148/84
[2024-10-08 15:20] VITALS: BP 123/69
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
--- NOTE | 2024-10-08 15:51 | CM ---
Reviewed chart, patient at plof/baseline. Wants to return home.
Plan: Case management will continue to follow and assist with discharge planning. Home.
[2024-10-12 08:19] LABS: Lyme Disease DNA by PCR Not Detected; Lyme Source Synovial fluid
== END 2024-10-08 16:13 | disposition home or self-care (01) | DRG 683 ==
LOC: 4 EAST ACU 21:19
PROVIDERS: Emergency Medicine; Physician Assistant Medical; Student in an Organized Health Care Education/Training Program; ADMITTING PHYSICIAN Internal Medicine; ATTENDING PHYSICIAN Internal Medicine; CONSULT PHYSICIAN Internal Medicine Cardiovascular Disease; CONSULT PHYSICIAN Internal Medicine Nephrology; CONSULT PHYSICIAN Specialist; EMERGENCY PHYSICIAN Emergency Medicine; FAMILY PHYSICIAN Family Medicine
DX: N17.9 Acute kidney failure, unspecified (principal); E87.1 Hypo-osmolality and hyponatremia; I5A Non-ischemic myocardial injury (non-traumatic); E86.0 Dehydration; F10.10 Alcohol abuse, uncomplicated; M10.062 Idiopathic gout, left knee; I10 Essential (primary) hypertension; E87.6 Hypokalemia; R55 Syncope and collapse
CPT/HCPCS: 73560; 76700; 80048; 80053; 82533; 82977; 83930; 83935; 84300; 84443; 84484; 84550; 85025; 85027; 87015; 87070; 87205; 87476; 89051; 89060; 93005; 93306; 96360; 97162; 99285

== ENCOUNTER → 2024-11-05 08:22 | Outpatient (REF) | payer OTHER, SELFPAY | LOC: RCS 08:22 | PROVIDERS: ATTENDING PHYSICIAN Physician Assistant Medical; FAMILY PHYSICIAN Family Medicine | DX: Z87.898 Personal history of other specified conditions (principal); R79.89 Other specified abnormal findings of blood chemistry; I10 Essential (primary) hypertension | CPT/HCPCS: 93017; 93350 ==

== ENCOUNTER 2025-06-05 20:46 | Inpatient (IN) | payer OTHER, SELFPAY ==
[2025-06-05] VITALS (15 sets, daily range): BP systolic 107–163; BP diastolic 68–96; PULSE 87–103; BMI 30.5; BMI 29.6
[2025-06-05 15:50] LABS: Hematocrit 39.1 % (39.0-52.0); Hemoglobin 13.9 g/dL (13.0-18.0); Mean Corp Hgb Conc. 35.5 g/dL (33.0-37.0); Mean Corpuscular Volume 95.6 fL (80.0-94.0); Nucleated Red Blood Cells % 0 % (-); Platelet Count 169 10^3/uL (130-400); Red Cell Dist. Width 12.3 % (11.5-14.5)
[2025-06-05 16:04] LABS: ALT (SGPT) 279 U/L (0-50); AST (SGOT) 528 U/L (17-59); Albumin 4.4 g/dl (3.5-5.0); Alkaline Phosphatase 229 U/L (38-126); Blood Urea Nitrogen 10 mg/dl (9-20); Calcium 9.2 mg/dl (8.4-10.2); Carbon Dioxide 25 mmol/L (22-30); Chloride 93 mmol/L (98-107); Estimated Creatinine Clearance 94 ml/min; Glucose 84 mg/dl (70-99); Potassium 4.3 mmol/L (3.5-5.1); Sodium 127 mmol/L (135-145); Total Protein 7.4 g/dl (6.3-8.2); eGFR > 60.00
--- NOTE | 2025-06-05 16:45 | ED.GENMED ---
History of Present Illness
General
Chief Complaint: Fainting/Passed Out
Source: patient
Exam Limitations: none
Time Seen by Provider: 06/05/25 16:34
History of Present Illness
History of Present Illness:
See MDM
Past History
Past History
ED Past Medical History: HTN and Psychiatric
ED Past Surgical History: Other (Hernia repair)
Social History
Tobacco: Non-smoker
Alcohol: Occasional (2-3 beers QOD)
Drug: None
Living: with family
Phy Exam
Physical Exam
Physical Exam:
See MDM
Course
Orders/Labs/Results
Orders:
Orders
06/05/25 15:27
EKG [Electrocardiogram (*1)] Urgent
Reason for Study: Vertigo / Dizzy
EKG- Treatment ONCE
06/05/25 15:35
Complete Blood Count/With Diff Urgent
Comprehensive Metabolic Panel Urgent
06/05/25 16:44
CT Head W/o Iv Contrast Urgent
Comment:
Reason For Exam: frequent falls and seizure-like activity
US Abdomen Complete/Upper Urgent
Comment:
Reason For Exam: RUQ pain
06/05/25 16:56
Hepatitis A Antibody, Total Urgent
Hepatitis A IgM Antibody Urgent
Hepatitis B Core Ab, IgM Urgent
Hepatitis B Core Ab, Total Urgent
Hepatitis B Surface Antibody Urgent
Hepatitis B Surface Antigen Urgent
Hepatitis C Antibody Urgent
Abnormal Lab Results
06/05/25
15:35
RBC 4.09 L 10^6/uL
(4.70-6.10)
MCV 95.6 H fL
(80.0-94.0)
MCH 34.0 H pg
(27.0-31.0)
Absolute Monos (auto) 0.7 H 10^3/uL
(0.1-0.6)
Lymphocytes % 18.5 L %
(20.5-51.1)
Monocytes % 11.1 H %
(1.7-9.3)
Sodium 127 L mmol/L
(135-145)
Chloride 93 L mmol/L
(98-107)
Total Bilirubin 2.0 H mg/dl
(0.2-1.3)
AST 528 H* U/L
(17-59)
ALT 279 H U/L
(0-50)
Alkaline Phosphatase 229 H U/L
(38-126)
06/05/25 15:35
06/05/25 15:35
Vital Signs
Initial and Last Documented VS:
Initial Vital Signs
Pulse Ox
99
06/05/25 15:30
Last Documented Vital Signs
Temp Pulse Resp BP Pulse Ox
98.3 F 83 20 152/93 98
06/05/25 15:40 06/05/25 19:00 06/05/25 19:00 06/05/25 19:00 06/05/25 19:00
MDM/Problems Addressed
Differential Diagnosis Includes:
Note:
CHIEF COMPLAINT(S)
Shaking episodes and altered mental status.
HISTORY OF PRESENT ILLNESS
The patient is a 59-year-old male with a history of hypertension who presented with episodes of shaking and altered mental status. Patient has had frequent falls recently. The patient exhibits occasional confusion and instability. at bedside
states that patient has these shaking episodes and then passes out. He has been under the care of his primary physician, Dr. 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 Previous tests include an MRI and ultrasound conducted in [place] and [place], yet results are
not available. Laboratory findings indicated elevated liver enzymes, prompting concerns of possible liver dysfunction. The patient reports no daily use of acetaminophen but admits to consuming alcohol socially on weekends. The patient denies regular
pain or gastrointestinal issues, although he reports reduced morning appetite and no pain associated with eating.
ADDITIONAL HISTORY OBTAINED FROM SOURCES OTHER THAN THE PATIENT
Detailed history provided by the patients family members, emphasizing concerns regarding the patients falls, confusion, and health deterioration.
CHRONIC MEDICAL CONDITIONS SIGNIFICANTLY AFFECTING CARE
Chronic conditions affecting care: Hypertension.
SOCIAL DETERMINANTS AFFECTING HEALTH
The patient has reported alcohol consumption, including periods of binge drinking when feeling depressed.
PHYSICAL EXAM
General: Alert, no acute distress.
Skin: Warm, dry.
Head: Normocephalic, atraumatic
Neck: Appears supple, trachea midline.
Eyes, Ears, Nose, Mouth, and Throat: Moist mucous membranes
Cardiovascular: No signs of cyanosis
Respiratory: Respirations are non-labored.
Abdomen: Non-distended. Soft and nontender
Musculoskeletal: No deformities
Neurological: No focal neurological deficit observed.
Psychiatric: Cooperative, appropriate mood and affect.
PLAN
The plan includes conducting a hepatic panel to rule out viral hepatitis and monitoring for any further neurological symptoms. The patient is to stay overnight for evaluation by a neurologist and to obtain a CT scan of the head if necessary to rule
out intracranial pathology.
DIFFERENTIAL DIAGNOSIS
The Differential Diagnosis includes, in no particular order and is not limited to:
- Seizure disorder
- Alcohol-related liver disease
- Hepatitis A or other forms of viral hepatitis
- Delirium due to metabolic causes
- Neurodegenerative disorder
- Transient ischemic attack
- Hepatic encephalopathy
- Intracranial hemorrhage
- Orthostatic hypotension
- Medication side effects
SUMMARY OF ENCOUNTER
The patient was evaluated for recent shaking episodes, altered mental status, a recent fall leading to a rib fracture, and abnormal liver function tests. Previous MRI and ultrasound results were unavailable. A hepatic panel was added for a
comprehensive liver evaluation to rule out viral hepatitis.
MEDICATION RECONCILIATION
Addition of hepatitis panel for further blood work as part of the evaluation.
MEDICAL DECISION MAKING
-Complexity of Data Reviewed: Chronic conditions affecting care - Hypertension.
The Differential Diagnosis includes, in no particular order and is not limited to seizures, alcohol-related liver disease, hepatitis A or other forms of viral hepatitis, delirium due to metabolic causes, neurodegenerative disorder, transient
ischemic attack, hepatic encephalopathy, intracranial hemorrhage, orthostatic hypotension, medication side effects.
-Data:
Category 2
Clinical information was obtained from family members providing additional history on falls and mental status changes.
Category 3
Discussion of management with the primary care provider and neurologist was considered for further evaluation and ruling out of any neurological causes.
-Risk: Prescription medication management, potential risks associated with lumbar puncture testing in the emergency department setting, consideration of possible admission for further monitoring and evaluation. The consideration of viral hepatitis
and ensuring proper hydration and reduced alcohol consumption were also addressed in planning the patients management pathway.
DIAGNOSIS
- Seizure Disorder, Possible (ICD-10: G40.909)
- Elevated Liver Enzymes (ICD-10: R74.8)
- Alcohol Use Disorder (ICD-10: F10.10)
EKG
My independent EKG interpretation is:
- Rhythm: Sinus rhythm
- [place]: Normal axis
- ST Segment: No ST elevation
- Intervals: Within normal limits
SUMMARY OF ENCOUNTER
The patient presented with several weeks of seizure-like activity and episodes of syncope. Additionally, he has a history of elevated liver function tests for which he has been receiving outpatient evaluation. A CT scan of the head was performed in
the emergency department to rule out any intracranial mass, which returned negative. An ultrasound of the gallbladder was non-specific. Due to the elevated liver enzymes and seizure-like activity, the decision was made to admit the patient for
further workup and evaluation.
DISPOSITION
Admit for further workup.
ASSESSMENT
The patient presents with seizure-like activity, syncope, and elevated liver function tests.
PLAN
The plan involves admitting the patient for further evaluation, including a hepatic panel to explore liver function abnormalities and monitoring for potential neurological causes.
INDEPENDENT REVIEW OF LABS AND INTERPRETATION OF TESTS
My independent review of CT of the head is negative for any intracranial mass.
MEDICAL DECISION MAKING
-Complexity of Data Reviewed: Chronic conditions affecting care include hypertension. The Differential Diagnosis includes seizure disorder, alcohol-related liver disease, hepatitis A or other forms of viral hepatitis, delirium due to metabolic
causes, neurodegenerative disorder, transient ischemic attack, hepatic encephalopathy, intracranial hemorrhage, orthostatic hypotension, medication side effects.
-Data:
Category 1
My independent interpretation of the CT scan of the head was conducted to rule out any intracranial mass, which was negative.
Category 2
Clinical information was obtained from family members emphasizing the patients falls and mental status changes.
Category 3
Management of the patient�s care was discussed with his primary care provider for coordination in admitting the patient for further evaluation.
DIAGNOSIS
- Possible Seizure Disorder (ICD-10: G40.909)
- Elevated Liver Enzymes (ICD-10: R74.8)
*Pulse Oximetry
SaO2: 99
Oxygen Mode of Delivery: Room air
Patient hypoxic: no
*Critical Care Note
Total Time (30-74mins, 75-104mins- exclusive of procedures): Not Applicable
ED Attending Note
-
Portions of this chart may have been created with voice recognition software.� Occasional wrong word or��sound alike� substitutions may have occurred due to the inherent limitations of voice recognition software.
Discharge Plan
Departure
Patient Disposition: Admit
Date of Disposition: 06/05/25
Time of Disposition: 19:20
Presentation/result/management discussed w/ accepting MD/DO: Hospitalist
Discharge Problem:
Transaminitis
Prescriptions:
No Action
sildenafil 100 mg Tablet
100 mg PO DAILYPRN PRN (Reason: intercourse)
escitalopram oxalate 5 mg Tablet
5 mg PO DAILY
verapamil 180 mg Tablet Extended Release
180 mg PO DAILY Qty: 30 0RF
folic acid 1 mg Tablet
1 mg PO DAILY Qty: 30 0RF
Rx Instructions:
For 1 month
acetaminophen 325 mg Tablet
650 mg PO Q4HPRN PRN (Reason: mild pain/ fever>100.5F) Qty: 1 0RF
tramadol 50 mg Tablet
50 mg PO Q6HPRN PRN (Reason: moderate pain) Qty: 12 0RF
thiamine mononitrate (vit B1) 100 mg Tablet
100 mg PO BID Qty: 60 0RF
Rx Instructions:
For a month
Referrals:
Ana Combs CRNP [Family Provider, Family Practice]
Interventions
Interventions:
*Risk Screen - Suicide Last Done: 06/05/25 15:47
*General Assessment Last Done: 06/05/25 15:45
*Neglect/Abuse Screening Last Done: 06/05/25 15:47
*ED COVID-19 Vaccine History Last Done: 06/05/25 15:45
*ED Influenza Vaccine History Last Done: 06/05/25 15:45
[facility] Fall Risk Assessment Tool Last Done: 06/05/25 16:38
ED- Cardiac Assessment Last Done: 06/05/25 16:14
ED- Neurological Assessment Last Done: 06/05/25 16:00
Discharge Date and Time
Print Language: UZBEK
[2025-06-05 18:13] LABS: Hepatitis B Surface Antigen Negative (Negative)
[2025-06-05 18:30] LABS: Hepatitis A Antibody, Total Negative (Negative); Hepatitis C Antibody Negative (Negative)
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
[2025-06-05 21:06] LABS: Urine Character Clear (Clear)
[2025-06-05 21:16] LABS: Ammonia 17 umol/L (9-30)
--- NOTE | 2025-06-05 23:00 | PTCARENOTE ---
Pt arrived to floor via stretcher from the ED. Pt able to ambulate from stretcher to bed without difficulty. Pt AAOx3. Pt tremulous, states this is abnormal for him. Pt also reports some abd discomfort, especially in am, with some loose stools.
Taking tums at home. Pt also reports some intermittent dizziness/ lightheadedness if standing up too fast. Orthostatic vitals obtained and documented. HR in the 80's in NSR on the monitor. POX 97% on RA. Lungs clear. + bowel, round abd. Palpable
peripheral pulses noted. Left AC int capped. MSAS 4 at this time. Pt instructed on fall risk protocol and need for bed alarm. Pt reports understanding. Call chong in reach. Will continue to monitor.
[2025-06-05] MEDS: ZESTRIL 10 MG PO (23:11)
[2025-06-05] MEDS: TOPROL XL 25 MG PO (23:11)
[2025-06-05] MEDS: THIAMINE INJECTION 200 MG IV (23:13)
[2025-06-05] MEDS: TYLENOL 650 MG PO (23:27)
[2025-06-05 23:38] LABS: Troponin I < 0.012 ng/ml
[2025-06-05 23:43] LABS: INR 1.01; PT 13.4 Sec (11.4-14.6)
[2025-06-05 23:44] LABS: APTT 24.4 Sec (23.4-35.0)
[2025-06-06] VITALS (14 sets, daily range): BP systolic 98–149; BP diastolic 65–92; PULSE 72–94; O2SAT 99; BMI 29.6
[2025-06-06 06:12] LABS: ALT (SGPT) 192 U/L (0-50); AST (SGOT) 394 U/L (17-59); Albumin 3.5 g/dl (3.5-5.0); Alkaline Phosphatase 180 U/L (38-126); Blood Urea Nitrogen 9 mg/dl (9-20); Calcium 8.9 mg/dl (8.4-10.2); Carbon Dioxide 24 mmol/L (22-30); Chloride 100 mmol/L (98-107); Estimated Creatinine Clearance 105 ml/min; Glucose 100 mg/dl (70-99); Magnesium 1.6 mg/dl (1.6-2.3); Potassium 4.1 mmol/L (3.5-5.1); Sodium 132 mmol/L (135-145); Total Protein 6.0 g/dl (6.3-8.2); eGFR > 60.00
[2025-06-06 06:23] LABS: Troponin I 0.013 ng/ml
--- NOTE | 2025-06-06 06:23 | PTCARENOTE ---
Pt slept well overnight. No issues to report. MSAS 3-4 t/o the night. No need for any PRN medications. Pt cooperative with care. Denies any complaints. vital signs stable. Call chong in reach. Will continue to monitor.
[2025-06-06 06:40] LABS: Hematocrit 34.3 % (39.0-52.0); Hemoglobin 12.1 g/dL (13.0-18.0); Mean Corp Hgb Conc. 35.3 g/dL (33.0-37.0); Mean Corpuscular Volume 95.8 fL (80.0-94.0); Platelet Count 129 10^3/uL (130-400); Red Cell Dist. Width 12.5 % (11.5-14.5)
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
[2025-06-06] MEDS: PROTONIX 40 MG PO (07:47)
[2025-06-06] MEDS: FOLVITE 1 MG PO (07:47)
[2025-06-06] MEDS: TOPROL XL 50 MG PO (07:47)
[2025-06-06] MEDS: ZYLOPRIM 300 MG PO (07:47)
[2025-06-06] MEDS: THIAMINE INJECTION 200 MG IV ×3 (07:48→23:20)
[2025-06-06 12:35] LABS: Troponin I < 0.012 ng/ml
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
--- NOTE | 2025-06-06 16:18 | CM ---
CM met with pt bedside
Pt resides with his spouse and 28 y/o dtr in a 2SH, 0STE, full flight to 2nd floor
Pt is independent with his ADLs, no DMEs
Denies financial insecurities
PCP- Ana Combs
Rx- [facility]
CM consult for ETOH use
[facility] offered and pt adamantly declined
Discharge Dispositio- anticipate home, declined [facility]
[2025-06-06] MEDS: TYLENOL 650 MG PO (20:25)
[2025-06-06] MEDS: ZESTRIL 10 MG PO (21:43)
[2025-06-06] MEDS: MELATONIN 5 MG PO (21:43)
[2025-06-06] MEDS: TOPROL XL 25 MG PO (21:44)
[2025-06-07] VITALS (7 sets, daily range): BP systolic 116–147; BP diastolic 62–89; PULSE 68; O2SAT 98
[2025-06-07] MEDS: FOLVITE 1 MG PO (07:39)
[2025-06-07] MEDS: TOPROL XL 50 MG PO (07:39)
[2025-06-07] MEDS: PROTONIX 40 MG PO (07:39)
[2025-06-07] MEDS: ZYLOPRIM 300 MG PO (07:40)
[2025-06-07] MEDS: THIAMINE INJECTION 200 MG IV ×3 (07:41→23:57)
[2025-06-07] MEDS: TYLENOL 650 MG PO (07:50)
[2025-06-07 08:51] LABS: Hematocrit 32.4 % (39.0-52.0); Hemoglobin 11.3 g/dL (13.0-18.0); Mean Corp Hgb Conc. 34.9 g/dL (33.0-37.0); Mean Corpuscular Volume 98.5 fL (80.0-94.0); Platelet Count 110 10^3/uL (130-400); Red Cell Dist. Width 12.4 % (11.5-14.5)
[2025-06-07 09:31] LABS: ALT (SGPT) 180 U/L (0-50); AST (SGOT) 252 U/L (17-59); Albumin 3.4 g/dl (3.5-5.0); Alkaline Phosphatase 149 U/L (38-126); Blood Urea Nitrogen 5 mg/dl (9-20); Calcium 8.8 mg/dl (8.4-10.2); Carbon Dioxide 29 mmol/L (22-30); Chloride 101 mmol/L (98-107); Estimated Creatinine Clearance 105 ml/min; Glucose 117 mg/dl (70-99); Magnesium 1.7 mg/dl (1.6-2.3); Potassium 4.2 mmol/L (3.5-5.1); Sodium 134 mmol/L (135-145); Total Protein 6.0 g/dl (6.3-8.2); eGFR > 60.00
--- NOTE | 2025-06-07 11:29 | EEG.RPT ---
Electroencephalogram Report
Recording
Date of EE06/07/25
Type of EEG: Routine
Length of EEG recordin minutes
Done with Video Recording: Yes
Patient Status: Inpatient
Recording Conditions: Awake and Drowsy
Hyperventilation Performed: No
Photic Stimulation Performed: Yes
Report
LESS THAN 1 HOUR EEG INTERPRETATION:
Unremarkable EEG for age
CLINICAL CORRELATION:
A normal EEG does not rule out a diagnosis of epilepsy. If clinical suspicion for seizure persists, a prolonged recording may be warranted.
Clinical correlation is advised.
METHODS:
A 21 channel digitized electroencephalogram (EEG) was performed using the 10/20 international system of electrode placement and one-lead of ECG recorded. The [employer] quantitative EEG system was utilized.
ELECTROENCEPHALOGRAPHER IMPRESSION(S):
Quality of study
Good
Background
There was an unremarkable anterior-posterior voltage gradient of alpha frequency.
With eye opening the background activity changed to a low voltage mixture of frequencies.
There were no significant asymmetries of background activity noted.
Sleep
Drowsiness present
Photic Stimulation
No activation
ECG
Normal sinus rhythm
[2025-06-07] MEDS: ZOFRAN 4 MG IV (12:37)
--- NOTE | 2025-06-07 13:44 | W.PN.UPDATE ---
Update Note
Progress Note Update
pt seen for assessment. in good spirits, hoping to get out soon. states low bp is major issue for him. not interested in detox/rehab/return to AA. Aware of risks of alcohol, willing to get treatment for PTSD but had been turned down for this by
workmen's comp program. Encouraged to seek this through his health insurance (through his ) [facility]. Once Na normal would restart zoloft 50 with plan to increase up to 100
--- NOTE | 2025-06-07 14:09 | PTOTSP ---
Pt presents to OT at independent level with basic ADLs, transfers and functional mobility in room and x household distances without AD. No further skilled OT indicated at this time.
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
[2025-06-07] MEDS: MELATONIN 5 MG PO (21:29)
[2025-06-07] MEDS: ZESTRIL 10 MG PO (21:29)
[2025-06-07] MEDS: TOPROL XL 25 MG PO (21:29)
[2025-06-08 03:00] VITALS: BP 123/80
[2025-06-08 07:05] VITALS: BP 130/73
[2025-06-08] MEDS: THIAMINE INJECTION 200 MG IV (07:44)
[2025-06-08] MEDS: TOPROL XL 50 MG PO (07:44)
[2025-06-08] MEDS: FOLVITE 1 MG PO (07:44)
[2025-06-08] MEDS: PROTONIX 40 MG PO (07:44)
[2025-06-08] MEDS: ZYLOPRIM 300 MG PO (07:48)
[2025-06-08] MEDS: ZOFRAN 4 MG IV (07:52)
[2025-06-08 08:24] LABS: Blood Urea Nitrogen 5 mg/dl (9-20); Calcium 8.8 mg/dl (8.4-10.2); Carbon Dioxide 29 mmol/L (22-30); Chloride 101 mmol/L (98-107); Estimated Creatinine Clearance 93 ml/min; Glucose 111 mg/dl (70-99); Magnesium 1.4 mg/dl (1.6-2.3); Potassium 3.9 mmol/L (3.5-5.1); Sodium 134 mmol/L (135-145); eGFR > 60.00
[2025-06-08 08:29] LABS: Hematocrit 32.4 % (39.0-52.0); Hemoglobin 10.9 g/dL (13.0-18.0); Mean Corp Hgb Conc. 33.6 g/dL (33.0-37.0); Mean Corpuscular Volume 99.1 fL (80.0-94.0); Platelet Count 123 10^3/uL (130-400); Red Cell Dist. Width 12.5 % (11.5-14.5)
[2025-06-08] MEDS: MAGNESIUM OXIDE 400 MG PO (09:02)
[2025-06-08 11:00] VITALS: BP 130/74
--- NOTE | 2025-06-08 13:10 | W.DCSUMMARY ---
Discharge Summary
Discharge Data
Date of Admission: 06/05/25
Date of Discharge: 06/08/25
Total time spent discharging patient (in min): 45
-
Pending Results: No
Hospital Course
Attending physician on day of discharge:
Hilda Fu MD
Discharge diagnosis:
Recurrent syncope
Hyponatremia
Alcohol use disorder
Transaminitis
Seizure-like episode
Secondary diagnoses:
Macrocytic anemia
HTN
Consultations:
Psychiatry
Procedures:
EEG
Hospital course:
59M with HTN and depression p/w recurrent episodes of syncope x several months, associated with falls, shaky/tremulous episodes, as well as witnessed seizure-like activity. He was found to have hyponatremia, transaminitis, and macrocytic anemia.
He reported continued use of alcohol that was reportedly decreased from previous. His constellation of symptoms and lab abnormalities were suggestive of alcohol use disorder. He did not exhibit any withdrawal symptoms. He had an abdominal
ultrasound which showed hepatic fatty infiltration, his transaminitis was suspected to be from alcohol use. He had EEG which did not show epilepsy, PNES was considered. His family brought in MRI brain results that showed mild to moderate cerebral
atrophy and changes associated with chronic small vessel ischemia and this was discussed with neurology who recommended outpatient follow-up, some of these changes are likely related to alcohol use as well. His sodium improved with fluid
restriction to 134, he was advised to follow-up with his PCP within a week for repeat testing. His sertraline was held due to the hyponatremia, psychiatry was consulted to help with medications for his PTSD, they recommended resuming Zoloft once
his hyponatremia completely resolves and increasing the dose as well to 100 mg. He was also recommended for therapy however he declined, he also declined [facility].
Physical exam on discharge:
Gen: NAD
HEENT: PERRLA, EOMI, MMM, neck supple
Cards: RRR, no M/G/R
Resp: Lungs CTAB, no W/R/R
GI: soft, NT/ND/NABS
MSK: No edema
Skin: warm and dry, no rash, ulcer or lesions
Heme: No LAD
Psych: Calm
Neuro: AAOx3
Discharge disposition:
Home
Discharge Plan
-
Patient Disposition: Home (Routine Discharge)
Discharge Diagnosis/Procedures: Recurrent syncope, PTSD, Ataxia/tremulousness, depression, alcohol use disorder
Diet: Regular
Activity: As tolerated
Instructions: Alcohol use disorder (DC), Alcohol and your health
Referrals:
Alexis Alegre MD [Active, Neurology] - in two weeks
Ana Combs CRNP [Family Provider, Family Practice]
Santana Singh MD [Active, Psychiatry] - in one to two weeks
Additional Discharge Medication Instructions: You were evaluated for your episodes of syncope (loss of conciousness) and were found to have low sodium (127), and elevated liver enzymes. Your sodium improved greatly (134), which is almost normal.
Your sertraline was held due to the low sodium but it can be resumed with a plan to increase from 50mg to 100mg once your sodium is completely normal (135 or above), so please follow up with your primary care doctor for repeat blood work within a
week. You should also follow up with psychiatry who saw you here as they may be best suited to adjusting your psych meds. Your liver tests also started to improve but are not completely back to normal, your PCP can do follow up labs for this. You
had work up for this with abdominal ultrasound which showed an enlarged fatty liver, which is suspected due to alcohol use. DO NOT DRINK ALCOHOL. Your syncope episodes were also most suspected due to that. The neurologist (Dr. Alegre) reviewed your
MRI brain and will follow up with you in the clinic to address the changes that were noted. Some of these changes are also related to alcohol use. You also had an EEG while here that did not show epilepsy. Stress from your PTSD may have led to the
seizure like activity you had (PNES).
Prescriptions:
New
melatonin 5 mg Tablet
5 mg PO HS Qty: 30 0RF
ondansetron 4 mg tablet,disintegrating
4 mg PO Q8H PRN (Reason: nausea) Qty: 14 0RF
Continued
folic acid 1 mg Tablet
1 mg PO DAILY Qty: 30 0RF
metoprolol succinate 50 mg tablet extended release 24 hr
50 mg PO DAILY
metoprolol succinate 50 mg tablet extended release 24 hr
25 mg PO HS
therapeutic multivitamin Tablet
1 tab PO DAILY
ascorbic acid (vitamin C) 500 mg Tablet
500 mg PO DAILY
lisinopril 10 mg tablet
10 mg PO HS
vitamin B complex Tablet
1 tab PO DAILY
allopurinol 300 mg tablet
300 mg PO DAILY
Rexulti 1 mg tablet
1 mg PO DAILY
Held
sertraline 50 mg tablet
50 mg PO HS
Hold Instructions: Resume on 06/15/25. hold until your sodium is normalized, follow up with PCP for repeat sodium level (BMP)
Discharge Orders:
Discharge Patient (As Directed); Ordered 06/08/25
Ordered By: Hilda Fu
Discharge Date and Time
Discharge Date/Time: 06/08/25 16:49
Print Language: MACEDONIAN
[2025-06-08 15:00] VITALS: BP 102/57
--- NOTE | 2025-06-08 15:22 | CM ---
Patient for discharge home today. Patient to transport him home and no needs expressed. CM will continue to follow for discharge planning needs.
Plan; home with no needs at this time.
--- NOTE | 2025-06-09 07:51 | PN.CDI ---
CDI
- -
CDI:
Physician Documentation Request
Admit Date: 06/05/25 20:46
Dear Doctor Tank,
Please review the following and provide your response in the progress notes.
Clinical Indicators:
- Patient admit with alcohol use disorder, recurrent syncope, and hyponatremia
- per DC Summary 'His constellation of symptoms and lab abnormalities were suggestive of alcohol use disorder'
- 'Macrocytic anemia'
Laboratory Tests
06/07/25 06/08/25
07:14 07:09
WBC 3.7 L 3.8 L
RBC 3.29 L 3.27 L
Hgb 11.3 L 10.9 L
Plt Count 110 L 123 L
Based on the above, could you clarify in the progress notes, the appropriate diagnosis, if significant, that supports the above abnormalities and additional evaluation, monitoring and/or treatment rendered:
Pancytopenia
Thrombocytopenia
Macrocytic anemia only
Leukopenia
Other (please specify)
Use of terms such as suspected, likely, concern for, or probable (associated with a specific diagnosis that is being evaluated, monitored, or treated as if it exists) are acceptable and can be coded in the inpatient setting, when documented at the
time of discharge.
Thank you,
Anabell Ash RN
CDI Specialist
Please use your independent medical judgment in providing your response.
--- NOTE | 2025-06-09 07:59 | PN.CDI ---
CDI
- -
CDI:
Physician Documentation Request
Admit Date: 06/05/25 20:46
Dear Doctor,
Please review the following and provide your response in the progress notes.
Clinical Indicators:
- Patient admit with alcohol use disorder, recurrent syncope, and hyponatremia
- 400mg Magnesium oxide given
Laboratory Tests
06/06/25 06/07/25 06/08/25
05:10 07:14 07:10
Magnesium 1.6 1.7 1.4 L
Please provide a diagnosis for the above lab values that were monitored and treatment rendered:
Hypomagnesemia
Abnormal lab value only
Other (please specify)
Use of terms such as suspected, likely, concern for, or probable (associated with a specific diagnosis that is being evaluated, monitored, or treated as if it exists) are acceptable and can be coded in the inpatient setting, when documented at the
time of discharge.
Thank you,
Anabell Ash RN
CDI Specialist
Please use your independent medical judgment in providing your response.
== END 2025-06-08 16:49 | disposition home or self-care (01) | DRG 641 ==
LOC: 4 WEST ACU 20:46
PROVIDERS: Internal Medicine; ADMITTING PHYSICIAN Hospitalist; ATTENDING PHYSICIAN Internal Medicine; CONSULT PHYSICIAN Psychiatry & Neurology Psychiatry; EMERGENCY PHYSICIAN Student in an Organized Health Care Education/Training Program; FAMILY PHYSICIAN Nurse Practitioner Family
DX: E87.1 Hypo-osmolality and hyponatremia (principal); D61.818 Other pancytopenia; F10.10 Alcohol abuse, uncomplicated; R74.01 Elevation of levels of liver transaminase levels; D53.9 Nutritional anemia, unspecified; I10 Essential (primary) hypertension; F32.A Depression, unspecified; F43.10 Post-traumatic stress disorder, unspecified; Z87.891 Personal history of nicotine dependence; E83.42 Hypomagnesemia
CPT/HCPCS: 70450; 76700; 80048; 80053; 80076; 80306; 80307; 81003; 82077; 82140; 82248; 82550; 83735; 83935; 84100; 84300; 84439; 84443; 84484; 85025; 85027; 85610; 85730; 86704; 86705; 86706; 86708; 86709; 86803; 87340; 93005; 95816; 97162; 97165; 99285